=== PATIENT | male | born 1940 | race Caucasian/White ===

== ENCOUNTER → 2016-05-10 | Outpatient (CLI) | payer MEDICARE, OTHER ==
[~2016-05-10] MED LIST: ASPIRIN EC81 MG PO; BACTRIM DS1 TAB PO; FLAX SEED OIL1000 MG PO; LATANOPROST1 GM IOC; LEVOTHROID (S150 MCG PO; MIRALAX510 GM PO; STOOL SOFTENER100 MG PO; THERA-VITE W/ B1 TAB PO; TIMOPTIC XE 0.5%5 ML IOC; TYLENOL/COD#31 TAB PO
== END | disposition disaster alternative care site (69) ==
LOC: LGSMG 14:03
DX: Z00.00 Encounter for general adult medical examination without abnormal findings (principal); Q60.0 Renal agenesis, unilateral; E03.9 Hypothyroidism, unspecified; R80.9 Proteinuria, unspecified